=== PATIENT | male | born 1935 | race Caucasian/White ===

== ENCOUNTER 2025-05-07 11:07 | Outpatient (OUT) | payer MEDICARE, OTHER, SELFPAY ==
--- OUTSIDE RECORDS SUMMARY | 2024-03-19 05:30 | XMS_ITS ---
Author Organization The [facility] in [place] Address [address] [place] [address] Care Team Providers Care Survey Cad Technician Name Role Phone Orestes Villalobos D.O Primary Care Provider Alpa vailaSarmad Flores Unavailable [phone] REASON FOR VISIT Ref. Wilfredo - prostate - had seen dr. Domínguez and Dr Jones--medicare Encounters Encounter Location Date Provider Diagnosis Urology [facility] [address] [address] 03/19/2024 Sarmad Keating Plan Of Treatment No Information Progress Notes * Ricci JUAREZ SrDOB:12/1935 (89 yo M)Acc No.[id number]:03/19/2024 UNLOCKED PROGRESS NOTE Progress Note Patient: Ricci NESS Sr :?Sarmad Keating, MDDOB:1935???Age:88 Y ???Sex:MaleDate:03/19/2024hone:[phone]:[address] [place], [place]Pcp:Orestes Villalobos D.O Subjective: * Chief Complaints: * 1 . Ref. Wilfredo Flores prostate - had seen dr. Domínguez and Dr Jones--medicare. * Medical History: Objective: * Vitals: Assessment: Plan: * Treatment: * * Electronic signature of Sarmad Keating MD, [id number] on 05/07/2025 at 11:16 AM ESTSign off status: PendingVisit Status:?R/S (Rescheduled) * Provider: Javier Keating MD Date: 0 03/19/2024 Generated for Printing/Faxing/eTransmitting on:?05/07/2025 11:16 AM EST
--- OUTSIDE RECORDS SUMMARY | 2024-05-09 10:00 | XMS_ITS ---
Author Organization The [facility] in [place] Address [address] [place] [address] Care Team Providers Care Band Cutter Name Role Phone Orestes Villalobos D.O Primary Care Provider Alpa jamalilaSarmad Flores [phone] REASON FOR VISIT prostate mri @ [facility] Encounters Encounter Location Date Provider Diagnosis Urology [address] [address] 05/09/2024 Sarmad Keating Plan Of Treatment No Information Progress Notes * Ricci JUAREZ SrDOB:12/1935 (89 yo M)Acc No.[id number]:05/09/2024 UNLOCKED PROGRESS NOTE Patient:?Ricci JUAREZ Sr :?Sarmad Keating MDDOB:1935???Age:88 Y ???Sex:MaleDate:4Phone:[phone]:[address] [place], [place]Pcp:Orestes Villalobos D.O Subjective: * Chief Complaints: * 1 . Prostate mri @ [facility]. * Medical History: Objective: * Vitals: Assessment: Plan: * Treatment: * * Electronic signature of Sarmad Keating MD, [id number] on 05/07/2025 at 11:16 AM ESTSign off status: PendingVisit Status:?R/S (Rescheduled) * Provider: Javier Keating MD Date: 1 07/09/2023 Generated for Printing/Faxing/eTransmitting on:?05/07/2025 11:16 AM EST
--- OUTSIDE RECORDS SUMMARY | 2024-11-19 04:50 | XMS_ITS ---
Author Organization [facility] in [place] Address [address] [place] [address] Care Team Providers Care Loss Prevention Coordinator Name Role Phone Orestes Villalobos D.O Primary Care Provider Alpa jamalilaSarmad Flores [phone] REASON FOR VISIT 6 month f/u Encounters Encounter Location Date Provider Diagnosis Urology [address] [address] 11/19/2024 Sarmad Keating Plan Of Treatment No Information Progress Notes * Ricci JUAREZ SrDOB:12/1935 (89 yo M)Acc No.[id number]:11/19/2024 UNLOCKED PROGRESS NOTE Patient:?Ricci JUAREZ Sr :?Saramd Keating MDDOB:1935???Age:89 Y ???Sex:MaleDate:11/19/2024Phone:[phone]:[address] [place], [place]Pcp:Orestes Villalobos D.O Subjective: * Chief Complaints: * 1 . 6 month f/u. * Medical History: Objective: * Vitals: Assessment: Plan: * Treatment: * * Electronic signature of Sarmad Keating MD, [id number] on 05/07/2025 at 11:16 AM ESTSign off status: PendingVisit Status:?R/S (Rescheduled) * Provider: Javier Keating MD Date: 0 11/19/2024 Generated for Printing/Faxing/eTransmitting on:?05/07/2025 11:16 AM EST
--- OUTSIDE RECORDS SUMMARY | 2025-01-30 06:10 | XMS_ITS ---
Author Organization The [facility] in [place] Address [address] [place] [address] Care Team Providers Care Dance Choreographer Name Role Phone Orestes Villalobos D.O Primary Care Provider Alpa jamalilaSarmad Flores [phone] Encounters Encounter Location Date Provider Diagnosis Urology [facility] [address] 01/30/2025 Sarmad Keating Plan Of Treatment No Information Progress Notes * Ricci JUAREZ SrDOB:12/1935 (89 yo M)Acc No.[id number]:01/30/2025 UNLOCKED PROGRESS NOTE Patient:?Ricci JUAREZ Sr :?Sarmad Keating MDDOB:1935???Age:89 Y ???Sex:MaleDate:01/30/2025Phone:[phone]:[address] [place], [place]Pcp:Orestes Villalobos D.O Subjective: * Chief Complaints: * * Medical History: Objective: * Vitals: Assessment: Plan: * Treatment: * * Electronic signature of Sarmad Keating MD, [id number] on 05/07/2025 at 11:16 AM ESTSign off status: PendingVisit Status:?CANC (Cancelled) * Provider: Javier Keating MD Date: 0 01/30/2025 Generated for Printing/Faxing/eTransmitting on:?05/07/2025 11:16 AM EST
--- OUTSIDE RECORDS SUMMARY | 2025-05-06 07:51 | XMS_ITS | Continuity of Care Document ---
Author Organization [facility] Address [address] [place] [address] Phone Care Team Providers Care Shaper Setter Name Role Phone Orestes Villalobos DO Primary Care Provider Mathew Magana DO Attending Provider Mathew Magana DO Other Provider [phone] Nathan Pacheco DO Attending Provider Matt Lange MD Attending Provider [phone] Berna Frazier APRN Attending Provider Care Teams Patient Care Team Team Status: Active Member Role/Relationship Status Dates Orestes Villalobos DO Primary Care Provider Active Visit Care Team Team Status: Active Member Role/Relationship Status Dates Orestes Villalobos DO Primary Care Provider Active Start: February 05, 2025 Nancy Martin ProviderActiveStart: February 05, 2025 Marvin Martin ProviderActiveStart: February 05, 2025 Visit Care Team Team Status: Inactive Member Role/Relationship Status Dates Orestes Villalobos DO Primary Care Provider Active Start: February 12, 2025 End: February 12, 2025Nancy Wu ProviderActiveStart: February 12, 2025 End: February 12, 2025 Visit Care Team Team Status: Inactive Member Role/Relationship Status Dates Orestes Villalobos DO Primary Care Provider Active Start: February 17, 2025 End: February 17, 2025Thomas Olexa , MDAttending ProviderActiveStart: February 17, 2025 End: February 17, 2025 Visit Care Team Team Status: Inactive Member Role/Relationship Status Dates Orestes Villalobos DO Primary Care Provider Active Start: March 04, 2025 End: March 04, 2025Mathew Magana DOAttyoanna ProviderActiveStart: March 04, 2025 End: March 04, 2025 Visit Care Team Team Status: Inactive Member Role/Relationship Status Dates Orestes Villalobos DO Primary Care Provider Active Start: March 25, 2025 End: March 25, 2025Nancy Martin ProviderActiveStart: March 25, 2025 End: March 25, 2025 Patient Care Team Team Status: Active Member Role/Relationship Status Dates Orestes Villalobos DO Primary Care Provider Active Start: May 01, 2025 Gilberto Clemente ProviderActiveStart: May 01, 2025 Patient Care Team Team Status: Inactive Member Role/Relationship Status Dates Orestes Villalobos DO Primary Care Provider Active Start: May 06, 2025 End: May 06, 2025Mathew Magana DOAttyoanna ProviderActiveStart: May 06, 2025 End: May 06, 2025 Chief Complaint and Reason for Visit Chief Complaint Admit Date Right Knee Wound February 05, 2025 10: 38am KAB pt - 1 week post op February 12 11:52am KAB PT 1 WEEK WOUND CHECK February 17, 2 025 10:48am 2 WEEKS March 04, 2025 10:43am 3 weeks March 25, 2025 11:04am Open Wound May 01, 2025 1 0:04am wound check May 06, 2025 1 1:44am Reason for Visit Admit Date Other specified postprocedural states Au shane 2024 10:48am Status post arthroscopy of right knee Au shane 2024 10:48am Hemarthrosis, right knee March 04, 2025 10:43am Status post arthroscopy of right knee Se ptember 2024 10:43am Wound dehiscence, surgical March 10:43am Hemarthrosis, right knee March 25, 2025 11:04am Status post arthroscopy of right knee Se ptember 2024 11:04am Wound dehiscence, surgical March 11:04am Atrial fibrillation May 01, 2025 1 0:04am Infrapatellar bursitis of right knee Oct vikki 2024 10:04am Psoriasis May 01, 2025 1 0:04am Status post arthroscopy of right knee Oc tober 2024 10:04am Type 2 diabetes mellitus wit h diabetic neuropathy, unspecified May 01, 2025 10:04am Wound dehiscence, surgical May 01, 2025 10:04am Wound infection May 01, 2025 1 0:04am Hemarthrosis, right knee May 06, 2 025 11:44am Status post arthroscopy of right knee No vember 2024 11:44am Wound dehiscence, surgical May 06, 2025 11:44am Allergies, Adverse Reactions, Alerts Allergen Type Severity Reaction Last Updated Verified Status indomethacin Allergy Unknown vomiting April 01, 2025 8:11a m Yes Active Social History Smoking Status Status Start Date End Date Date of Observa tion Never smoked tobacco (finding) May 01, 2025 10:21am Observation Status Observation Response Date of Response Legal Sex Male (finding) Sex Assigned At BirthMaleMay 1935 Family History Relationship Condition Age at Onset Recorded Date/T kenzie father Unknown motherMalignant neoplasmUnknownDeceasedUnknownmotherMalignant neoplasmUnknown Problems Active Problems Problem Diagnosis/Recorded Date Onset Date Stat BPH (benign prostatic hyperplasia) November 09, 2023 10:57 am Unknown Active Elevated PSA November 09, 2023 10:57am Unknown Active Type 2 diabetes mellitus wit h diabetic neuropathy, unspecified November 09, 2023 10:58am Unknown Active Other specified postprocedural states February 17 10:03am Unknown Active Erectile dysfunction due to arterial insufficiency November 09, 2023 10:57am Unknown Active Wound infection April 24, 2025 9:18am Unknown Active Vitamin B12 deficiency November 09, 2023 10:58am Unknown Active CAD (coronary artery disease) November 09, 2023 10:57am Un known Active Atrial fibrillation January 21, 2025 2:22pm Unknown Active Infrapatellar bursitis of right knee January 17, 2025 1 :24pm Unknown Active Hyperlipidemia November 09, 2023 10:57am Unknown Acti ve Psoriasis November 09, 2023 10:57am Unknown Active Status post arthroscopy of right knee January 17, 2025 5:21am Unknown Active Wound dehiscence, surgical February 04, 2025 11:52am Un known Active GERD (gastroesophageal reflux disease) November 09, 2023 1 0:57am Unknown Active Hemarthrosis, right knee January 16, 2025 7:52am Unknow n Active Allergic rhinitis November 09, 2023 10:57am Unknown A ctive Hypertension November 09, 2023 10:57am Unknown Active Vitamin D deficiency November 09, 2023 10:58am Unknown Active Inactive/Resolved Problems Problem Diagnosis/Recorded Date Onset Date Stat us Encounter for management of vacuum-assisted closure (VAC) of wound January 25, 2025 5:20pm Unknown Resolved Medications Medication Status Dose Units Route Directions Qty Days Refills S tart Date Stop Date End Date Reason(s) Instructions Adherence Lisinopril-Hydrochlorothiazide 20-12.5 mg tablet Disco ntinued 0 .ROUTE.DOMFJKJ449Ntr 2023 7:12amNovember 2023 6:33amTAKE 1 TABLET BY MOUTH EVERY DAYMetformin 1,000 mg tabletDiscontinued0.ROUTE.ITUESRZ7579Ezqp 2023 6:16amSeptember 2023 6:45amTAKE 1 TABLET BY MOUTH TWICE A DAY WITH MEALSMeloxicam 7.5 mg tabletDiscontinued0.ROUTE.TUDHRXL166Vchm 2023 6:17am April 08, 2024 12:58pmTAKE 1 TABLET BY MOUTH EVERY DAYOmeprazole 20 mg capsule,delayed release(DR/EC)Active0.ROUTE.DIKYZRP803Nzot 2023 9:15amTAKE 1 CAPSULE BY MOUTH EVERY DAY 30 MINUTES BEFORE MORNING MEALUnknownAtorvastatin 40 mg tabletDiscontinued0.ROUTE.NPWENHC721Afpusy 2023 5:38amFebruary 2024 10:33amTAKE 1 TABLET BY MOUTH EVERY DAYBisoprolol-Hydrochlorothiazide 2.5- 6.25 mg tabletDiscontinued0.ROUTE.BFPJIOG915Arvyyx 2023 5:39amFebruary 2024 10:33amTAKE 1 TABLET BY MOUTH EVERY DAYMetformin 1,000 mg tablet Discontinued0.ROUTE.ICZAHTS3642Corovrmsu 2023 6:45amMay 2024 5:15am TAKE 1 TABLET BY MOUTH TWICE A DAY WITH MEALSMeloxicam 7.5 mg tabletDiscontinued 0.ROUTE.ELDVYJZ444Sikgazg 2023 12:58pmJune 2024 5:31amTAKE 1 TABLET BY MOUTH EVERY DAYLisinopril-Hydrochlorothiazide 20-12.5 mg tabletDiscontinued0 .ROUTE.UQZZYWQ134Edlfhqtj 2023 6:33amApril 2024 10:18amTAKE 1 TABLET BY MOUTH EVERY DAYAtorvastatin 40 mg tabletDiscontinued0.ROUTE.ILSLSEM982 August 07, 2024 10:32amJuly 2024 5:38amTAKE 1 TABLET BY MOUTH EVERY DAY Bisoprolol-Hydrochlorothiazide 2.5-6.25 mg tabletDiscontinued0.ROUTE.AEWQOWG952 August 07, 2024 10:33amJuly 2024 5:38amTAKE 1 TABLET BY MOUTH EVERY DAY Lisinopril-Hydrochlorothiazide 20-12.5 mg tabletActive0.ROUTE.DQEGJIR375Oufab 2024 10:17amTAKE 1 TABLET BY MOUTH EVERY DAYUnknownMetformin 1,000 mg tabletActive0.ROUTE.GHXYLDB1835Qkp2024 5:14amTAKE 1 TABLET BY MOUTH TWICE A DAY WITH MEALSUnknownMeloxicam 7.5 mg tabletActive0.ROUTE.ORCZLEP195Ikjl2024 5:31amTAKE 1 TABLET BY MOUTH EVERY DAYUnknownHydrocodone-Acetaminophen 5- 325 mg iqkajzRbcpxnyrspip6LSYNKHxqvx 6 hours as needed for oqhe5129Pmek 2024July 2024 1:32pmRight knee pain Pain in right kneeTramadol 50 mg clkqvyHoqgwdzwbywq67FZNMBnddk 8 hours as needed for jdhd2912Dyei 2024 11:00pmSeptember 2024 8:18amStatus post arthroscopy of right knee Other specified postprocedural statesTO BE USED POST OP 01/17/25Aspirin 81 mg tablet,wisizgubXcnjvaielvgk29ZHTZTfikr vzbtp58610Ugub 2024 11:00pm April 01, 2025 8:15amTO BE USED POST OP 01/17/25Atorvastatin 40 mg tablet Active0.ROUTE.GQTGRJM726Jmpf 24th, 2025 5:37amTAKE 1 TABLET BY MOUTH EVERY DAY UnknownBisoprolol-Hydrochlorothiazide 2.5-6.25 mg tabletActive0.ROUTE.ZVGJACO071 January 23, 2025 5:38amTAKE 1 TABLET BY MOUTH EVERY DAYUnknownTramadol 50 mg bvpuswDkwzjmxrwfno75SNKVAifhe 8 hours as needed for skxw3522Fgzfqd 2024 11:00pmSept2024 8:18amPostoperative wound dehiscenceDoxycycline Hyclate 100 mg mfcytxDwqmodhlltek888QSTUDxems filsk2200Egohvt 2024 10:38am April 01, 2025 8:17amDoxycycline Hyclate 100 mg zkhwjwZdepghhwxcom630HIUU Twice gdlit9641Rciy 2024 11:00pmAugust 2024 10:41amClobetasol 0.05 % odrettgfQojfwj3FEZFFFBQXQQJR8 Times a star34524Pvjcsjgcg 2024 11:00pm UnknownAmoxicillin-Pot Clavulanate 875-125 mg tmvzzrWxmjdc2APTFAHzjzr qcozt334 April 20, 2025 11:00pmUnknownGentamicin 0.1 % vqhzqywfWpetop3IQUFCVOAONCKP1 Times a idut766Bkoyfuj 2024 11:00pmUnknownSulfamethoxazole-Trimethoprim (Bactrim Ds) 800-160 mg psuztjDyjbykbnttqf1CZHRXAqykk ozfed843Xsga 2024 11:00pmJuly 2024 8:46amHydrocodone-Acetaminophen 5-325 mg tablet Hgrnztribtxo7AWITGDhcsa 6 hours as needed for vyrs6600Yljn 2024July 2024 10:27amRight knee pain Pain in right kneePrednisone 20 mg rqxsntKklaeemqsdlq48EZLBAuolm7666Ukag 2024 11:00pmJuly 2024 7:53amOmeprazole 20 mg capsule,delayed release(DR/EC)Asgixpomrufb91KPKYWgfftTxn 2023 11:00pmJuly 2023 9:15am Metformin 1,000 mg jhirkuWgipdkvrltat7756HVNRSjajrMyk 2023 11:00pmJune 2023 6:16amMeloxicam 7.5 mg tabletDiscontinued7.5MGPODailyMay 2023 11:00pmJune 2023 6:18amLisinopril-Hydrochlorothiazide 20-12.5 mg tablet Ofilvurgivya4ONAQXPguqnDis 2023 11:00pmMay 2023 7:12amAspirin 81 mg tablet,iurjivyhXdplpqefwpfq8BCAAROwxjiLka 12th, 2024 11:00pmMay 2024 9:42amTamsulosin 0.4 mg oqmxtevGgcqrftdbosd2OHEZHFnpoeSzh 2023 11:00pmMay 2024 9:43amFreeTextSi capsule Orally Once a day; Note: Source Status: Taking; Provider: Wilfredo Carlisle( )Magnesium Oxide 400 mg (241.3 mg magnesium) ojxstiYnszqghulfza1VYXNDYzheyLrz 12th, 2024 11:00pmMay 2024 9:43amFreeTextSi tablet as needed Orally Once a day; Note: Source Status: Start; Refills: 1; Qty: 90 Tablet; Provider: Wilfredo Gresham Bisoprolol-Hydrochlorothiazide 2.5-6.25 mg iejvqzFlneempxwwxn5VYIVHSpbjwEwx 2023 11:00pmAugust 2023 5:39amAtorvastatin 40 mg vckwqjQzuwsbkkblgn53 MGPODailyMay 2023 11:00pmAugust 2023 5:38amSildenafil 50 mg tablet Mzwsgkbihsyj36KWJLWzuylYcb 2023 11:00pmJuly 2024 7:53amDulaglutide (Trulicity) 0.75 mg/0.5 mL pen injectorDiscontinued0.5MLSUBCUTOnce a weekMay 2023 11:00pmMay 2023 8:11amFreeTextSi.5 ml Subcutaneous Once a week; Note: Source Status: Taking; Refills: 1; Qty: 6 ml; Provider: Wilfredo Carlisle AClobetasol 0.05 % iopluIgkgpghhmoiv7TDWLKTQMPQWRGKvpkb zzrnk21864Yat 2023 11:00pmSeptember 2024 8:17amTramadol 50 mg wjsadoQloxwwltawbh54 MGPOEvery 8 hours as needed for gfen9377Fyjm 2024 11:00pmSeptember 2024 8:18amStatus post arthroscopy of right knee Other specified postprocedural statesSulfamethoxazole-Trimethoprim (Bactrim Ds) 800-160 mg zdhmkpUqfebmhdmmmc4XOKWVLvers gdvot34857Lydo 2024 11:00pmAugust 2024 10:00am Immunizations Immunization Event Date Not Given Reason Dose Number [employer] Lot Number Reason(s) Given Vaccine Information Statement (VIS) Detail Administration Location Quadrivalent Influenza (mdv) September 10, 2014 Fluzone TIV High-Dose 65YR+May 06, [id number] influenza, unspecified formulationNovember 2019influenza, unspecified formulationOctober 2020influenza, unspecified formulationOctober 2021influenza, unspecified formulationNovneumococcal Conjugate Vaccine, 13 valentNovember 2019Pneumococcal Polysacc. Vaccine, 23 valentMay 2021 Procedures Procedure Date Performed Status Aerobic Culture April 24, 2025 completed Anaerobic Culture April 24, 2025 completed Gram Stain April 24, 2025 completed Relevant Diagnostic Tests and/or Laboratory Data Microbiology Results Procedure Source Result Collection Date/Time Result Date/Time Result Comment Performing Site Aerobic Culture Knee,Right, Tissue Proteus mirabilis O ctober 2024 10:05am April 27, 2025 12:37pm [facility] [id number] [address] [place] [id number],Right, TissueEnterococcus faecalisOctober 2024 10:05amOctober 2024 12:37pm[facility] [id number] [address] [facility] [address]Fsquaaskd CultureKnee,Right, TissueBacteroides fragilisOctober 2024 10:05amOctober 2024 12:39pm[facility] [id number] [address] [facility] [id number],Right, TissuePrevotella disiensOctober 2024 10:05am April 27, 2025 12:39pm[facility] [id number] [address] [facility] [id number] StainKnee,Right, TissueOctober 2024 10:05amOctober 2024 1:47pm[facility] [id number] [address] [facility] [address] Vital Signs Vital Reading Result Reference Range Collection Date/Time Height 67 [in_i] February 05, 2025 9:76uiJefmgj84.11 kgAugust 2024 9:53amBody Tvvngixdlky96.6 [degF]97.6-99.0August 2024 11:40amHeart Rate90 /odn61-580Ofskdz 2024 1:02pmRespiratory rate16 /rae57-94Qsvcjx 6th, 2025 1:02pmOxygen saturation by Pulse iqkbvjnx72 %95-100Augus2024 1:02pmBP Tcsboqle193 mm[Hg]100-140 February 05, 2025 1:02pmBP Ufvvhlxku34 mm[Hg]60-100August 2024 1:02pmInhaled oxygen flow rate8 L/minAugust 2024 11:82upIofsep81 [in_i]May 01, 2025 9:72aeJchtlk09.74 kgOctober 2024 9:21amBody Ksevsehmswr84.2 [degF] 97.6-99.0October 2024 9:04amHeart Rate76 /sjj90-571Pbqetff 2024 9:04amRespiratory rate18 /afa58-52Gqpdnoe 2024 9:04amBP Ynbemwca614 mm[Hg] 100-140[facility] 20[facility] 9:04amBP Otbwkvgff34 mm[Hg]60-100[facility] 2024 9:04amBMI (Body Mass Index)25.4 kg/v9Csefubh 2024 9:21am Advance Directives Advance Directive Response Recorded Date/ Time Advance Directives No January 13 12:08pm Insurance Providers Guarantor Patricia William Address [address] [address]Xucglfr Info.Home Phone: Coverage Status Update:2025 Payer Group Member ID Coverage Type Subscriber Relationship to Subscriber Effective Date Expiration Date Medicare [id number] Sisson , D Id: [id number] [facility] [address] Home Phone: Email: [email or web address] Id: [id number] Sisson , D Id: [id number] [facility] [address] Home Phone: Email: [email or web address] Encounters Encounter Location(s) Arrival/Admit Date Discharge/Departure Date Discharge/Departure Disposition Provider(s) Non-patient / Non-visit -[facility] February 05, 2025 10:38am Stephanie Martin [facility] 11:52amAugu2024 12:13pmDischarged to home care or self care (routine discharge)Stephanie Wu Physician/Provider [facility] 2024 10:48amAugu2024 11:31amDischarged to home care or self care (routine discharge)Carmelo Ca Physician/Provider Office Visit-[facility] 2024 10:43amSeptember 2024 12:06pm Discharged to home care or self care (routine discharge)Mathew Magana DO Departed Physician/Provider [facility] 11:04amSeptember 2024 11:33amDischarged to home care or self care (routine discharge)SYEDA Martinegistered Recurring-Wound Care [facility] 2024 10:04amDhruv Irene APRNDeparted Physician/Provider [facility] 11:44amNovember 2024 12:49pmDischarged to home care or self care (routine discharge)Mathew Magana DO Recent Diagnosis Onset Date Admit Date Other specified postprocedural states Unknown February 17, 2025 10:48am Status post arthroscopy of right knee Unknown February 17, 2025 10:48am [facility] 10[facility] Status post arthroscopy of right knee Unknown March 04, 2025 10:43am Wound dehiscence, surgical Unknown [facility] 2024 10:43am Hemarthrosis, right knee [facility] 11:04am Status post arthroscopy of right knee Unknown March 25, 2025 11:04am Wound dehiscence, surgical Unknown [facility] 2024 11:04am Atrial fibrillation Unknown April 10:04am Infrapatellar bursitis of right knee Unknown May 01, 2025 10:04am Psoriasis Unknown May 01 10:04am Status post arthroscopy of right knee Unknown May 01, 2025 10:04am Type 2 diabetes mellitus wit h diabetic neuropathy, unspecified Unknown May 01, 2025 10:04am Wound dehiscence, surgical Unknown [facility] 2024 10:04am Wound infection Unknown May 01 10:04am Hemarthrosis, right knee Unknown 2024 11:44am Status post arthroscopy of right knee Unknown May 06, 2025 11:44am Wound dehiscence, surgical Unknown 2024 11:44am Assessments Diagnosis Onset Date Resolution Status Admit Date Other specified postprocedural states acuteAugust 2024 10:48amStatus post arthroscopy of right kneeacuteAugust 2024 10:48amHemarthrosis, right kneeacuteSeptember 2024 10:43amStatus post arthroscopy of right kneeacuteSeptember 2024 10:43amWound dehiscence, surgicalacuteSeptember 2024 10:43amHemarthrosis, right kneeacuteSeptember 2024 11:04amStatus post arthroscopy of right kneeacuteSeptember 2024 11:04amWound dehiscence, surgicalacuteSeptember 2024 11:04amAtrial fibrillationacuteOctober 2024 10:04amInfrapatellar bursitis of right knee acuteOctober 2024 10:04amPsoriasisacuteOctober 2024 10:04amStatus post arthroscopy of right kneeacuteOctober 2024 10:04amType 2 diabetes mellitus with diabetic neuropathy, unspecifiedacuteOctober 2024 10:04am Wound dehiscence, surgicalacuteOctober 2024 10:04amWound infectionacute October 2024 10:04amHemarthrosis, right kneeacuteNovember 2024 11:44amStatus post arthroscopy of right kneeacuteNovember 2024 11:44amWound dehiscence, surgicalacuteNovember 2024 11:44am Plan of Treatment Author Sheyla [facility]red[facility] 2024 10:33amWound vac removed today. Patient is progressing well from surgery. Instructed on gentle range of motion exercises. Sutures removed today, patient tolerated well. Instructed on wet to dry dressings, as well as leaving open to air while at rest. Wet to dry dressing applied without difficulty. May progress out of immobilizer as tolerated. Advised patient contact us with any questions/concerns. Author Tricia Campos [facility]2024 11:14amDiscussed with patient his wound is not healing as expected, no evidence of infection. Discussed revision surgery and referral to wound care. Discussed due to his upcoming trip we will continue with at home wound care and will reassess at follow up appointment. Discussed with patient to call with any questions or concerns, we can send an antibiotic in if there are any changes. Patient is to follow up in 2.5 weeks Note scribed by KIM Dominguez, reviewed and amended by myself Mathew Magana D.O. Author Mathew Magana [facility] 2024 12:28pmWe discussed exam findings, symptoms, and imaging and likely etiologies of the patient's pain. We discussed conservative management vs surgical intervention. The patient wishes to proceed with surgery in the form of Primary wound closure of right knee. We discussed the risks, benefits, and alternatives to surgery in general, including the potential outcomes with foregoing treatment altogether. The risks include, but are not limited to, the risk of anesthesia up to and including , infection, bleeding, tendon damage, nerve damage, vascular damage, stiffness, weakness, loss of range of motion, arthrofibrosis, failure to alleviate symptoms, worsening of symptoms, continued pain, continued mechanical symptoms, arthritic pain, post traumatic arthritis, wound healing problems, formation of cutaneous scars secondary to surgical incisions, deep venous thrombosis, pulmonary embolism, reflex sympathetic dystrophy, unforeseen complications and the need for further surgery. Procedure: Primary wound closure of right knee Antibiotics: Ancef DVT ppx: Ambulation Same Day Surgery: Yes Bed: Regular OR bed, MAC anesthetic Instruments needed: Small wound VAC, T scope knee brace after surgery (already provided to patient) Note scribed by KIM Tolliver, reviewed and amended by myself Mathew Magana D.O. Author Mathew Magana [facility] 2024 10:28amHe is slowly progressing. The wound is slowly healing. At this time, we discussed continuing to treat this conservatively with observation versus surgical intervention. Patient would like to avoid surgery if possible.. We also discussed starting wound care, referral was submitted. Advised he should continue to monitor for infection. He can continue to progress activity as tolerated. He can follow up 6-8 weeks or as needed if he is doing well. Future Tests Future scheduled test information is unavailable Pending Tests Pending diagnostic test information is unavailable Future Visits Future appointment information is unavailable Future Procedures Procedure Name Ordered Date Scheduled Date Post Anesthesia Tracer order February 05, 2025 9: 55am February 05, 2025 10:00am Discharge Order February 04, 2025 4:52pm February 052024 12:37pm Future Medications Future medication information is unavailable Patient Instructions Instruction Admit Date Know your Meds February 05, 2025 10: 38am
--- OUTSIDE RECORDS SUMMARY | 2025-05-06 13:00 | XMS_ITS | Encounter Summary ---
Author Organization [facility] Address [address] [place] [address] Care Team Providers Care Operator Receptionist Name Role Phone Unavailable Primary Care Provider Unavailabl e Reason for Visit * ReasonCommentsSkin CheckFollow-up Encounter Details DateTypeDepartmentCare Team (Latest Contact Info)Devffxfothr53/04/2025 1:00 PM ESTOffice Visit [facility] [address] [facility] [address] [place] [phone] Dorothy Stubbs MD [address] [facility] [address] [place] [address] Other atopic dermatitis (Primary Dx); Neoplasm of unspecified behavior of bone, soft tissue, and skin; Actinic keratosis; Lentigines; History of basal cell carcinoma Social History Tobacco UseTypesPacks/DayYears UsedDateSmoking Tobacco: NeverSmokeless Tobacco: NeverAlcohol UseStandard Drinks/WeekCommentsYes0 (1 standard drink = 0.6 oz pure alcohol)Sex and Gender InformationValueDate RecordedSex Assigned at BirthNot on fileLegal OkrAqzd1009/14/2022 6:50 PM EDTGender IdentityNot on fileSexual OrientationNot [...] limited to risks of scarring, darker or type disk quality control supervisor pigmentary changes, recurrence, incomplete removal and infection. [...] 5. HISTORY OF BASAL CELL CARCINOMA Left [place] No evidence of recurrence at BCC scar. [...] Plan of Treatment DateTypeDepartmentCare Team (Latest Contact Info)Vgzzdsdxcad61/04/2026 1:00 PM ESTOffice Visit [facility] [address] [place] [address] Dorothy Stubbs MD [address] [place] [address] NameTypePriorityAssociated DiagnosesOrder ScheduleDermatopathology examPathology and CytologyTimed Neoplasm of unspecified behavior of bone, soft tissue, and skin Release Upon Ordering for 1 Occurrences starting 05/06/2025documented as of this encounter Procedures Procedure NamePriorityDate/TimeAssociated DiagnosisCommentsSKIN / NAIL BIOPSY Vbztssw0505/06/2025 1:06 PM EST Neoplasm of unspecified behavior of bone, soft tissue, and skin SKIN / NAIL NWARYBIlojrtl70/04/2025 1:04 PM EST Neoplasm of unspecified behavior of bone, soft tissue, and skin CRYOTHERAPY SKIN QYDGRQEpvfvqw06/04/2025 1:04 PM EST Actinic keratosis SKIN / NAIL CCHEJIKiyqpxt41/04/2025 1:03 PM EST Neoplasm of unspecified behavior [...]
--- OUTSIDE RECORDS SUMMARY | 2025-05-07 11:16 | XMS_ITS | Encounter Summary ---
Author Organization [facility] Address [address] [place] [address] Care Team Providers Care Docking Pilot Name Role Phone Unavailable Primary Care Provider Unavailabl e Encounter Details DateTypeDepartmentCare Team (Latest Contact Info)Ckcocafnijj31/04/2025Travel Social History Tobacco UseTypesPacks/DayYears UsedDateSmoking Tobacco: NeverSmokeless Tobacco: NeverAlcohol UseStandard Drinks/WeekCommentsYes0 (1 standard drink = 0.6 oz pure alcohol)Sex and Gender InformationValueDate RecordedSex Assigned at BirthNot on fileLegal ZkiKdlw2909/14/2022 6:50 PM EDTGender IdentityNot on fileSexual OrientationNot on filedocumented as of this encounter Plan of Treatment DateTypeDepartmentCare Team (Latest Contact Info)Rqcidolivcr57/04/2026 1:00 PM ESTOffice Visit [facility] [address] [facility] [address] [place] [phone] Dorothy Stubbs MD [address] [facility] [address] [place] [address] documented as of this encounter Visit Diagnoses Not on filedocumented in this encounter
--- OUTSIDE RECORDS SUMMARY | 2025-05-07 11:16 | XMS_ITS | Patient Health Record ---
Author Organization [facility] Address [address] [place] [address] Care Team Providers Care Search Developer Name Role Phone Magdiel Fernandon Unavailable [phone] Allergies No Known Allergies Reason For Referral No Information Medications Medication SIG (Take, Route, Frequency, Duration) Notes Start Date End Date Status Meloxicam 7.5 MG Oral; Duration: 90 Days ActiveKetoconazole 2 %External; Duration: 30 DaysActiveLisinopril- hydroCHLOROthiazide 20-12.5 MGOral; Duration: 90 DaysActivemetFORMIN HCl 1000 MG Oral; Duration: 90 DaysActiveAtorvastatin Calcium 40 MGOral; Duration: 90 Days ActiveBisoprolol-hydroCHLOROthiazide 2.5-6.25 MGOral; Duration: 90 DaysActive Levocetirizine Dihydrochloride 5 MGOral; Duration: 90 DaysActiveBetamethasone Dipropionate 0.05 %External; Duration: 30 DaysActive Vital Signs Heart Rate 70 BPM 07/22/2024 Ddfvqzulyqc13.8 degrees Uuyldxxmwy83/20/2025Respiratory Rate18 BPM07/22/2024 Blood pressure ldxsdvzga75 mm/Hg07/22/20248647Mtqhaobo10 %07/22/20243766Gggpfy19 in 07/22/2024lood pressure yqurosuk662 mm/Hg07/22/20242020Aabyjm304 lbs07/22/2024MI 26.3 kg/m207/22/2024 Procedures Procedure Date Ordered Date Performed Result Body Sit e CERUMEN DISIMPACTION- ONE EA R (EAR IRRIGATION) 07/22/2024 07/24/2024 N/A Encounters Encounter Location Date Provider [facility] [address] [place] [address] 07/22/2024 Jason Fernando Bilateral impacted cerumen H61.23 Assessments Encounter Date Diagnosis (ICD Code) Assessment Notes Treatment Notes Treatment Clinical Notes Section Notes 07/22/2024 Bilateral impacted cerumen (ICD- 10 - H61.23) Plan Of Treatment No Information Insurance Providers Payer Name Payer Address Payer Phone Subscriber Number Group Number Insured Name Patient Relationship to Insured Coverage Start Date Coverage End Date MEDIC[place] [address] [address] [place] [address] [id number] Mic Juarez - patient is the [facility] [address] [address] [place] [id number], RichardSelf - patient is the insured Medical (General) History Medical History History ICD Code HTN CHOLESTEROLDIABETEShearing loss - hearing aids
--- OUTSIDE RECORDS SUMMARY | 2025-05-07 11:16 | XMS_ITS | Clinical Summary ---
Author Organization [facility] Address [address] [place] [address] Care Team Providers Care Local Company Truck Driver Name Role Phone Unavailable Primary Care Provider Unavailabl e Allergies No known active allergies Medications MedicationSigDispense QuantityRefillsLast FilledStart DateEnd DateStatus atorvastatin (Lipitor) 40 MG tablet Take 40 mg by mouth in the morning.02/14/2023ctive bisoprolol-hydroCHLOROthiazide (Ziac) 2.5-6.25 MG tablet Take 1 tablet by mouth in the morning.Active lisinopril-hydroCHLOROthiazide 20-12.5 MG tablet Take 1 tablet by mouth in the morning.Active meloxicam (Mobic) 7.5 MG tablet TAKE 1 TABLET BY MOUTH EVERY DAY FOR 90 DAYS03/16/2023ctive metFORMIN (Glucophage) 1000 MG tablet Take 1,000 mg by mouth in the morning and 1,000 mg in the evening. Take with meals.03/23/2023ctive omeprazole (PriLOSEC) [address] capsule TAKE 1 CAPSULE BY MOUTH EVERY DAY 30 MINUTES BEFORE MORNING MEALActive pioglitazone-metFORMIN (Actoplus Met) 15-500 MG tablet 1 (one) time each day at the same time.Active simvastatin (Zocor) 80 MG tablet 1 (one) time each day at the same time.Active betamethasone dipropionate 0.05 % cream Indications:Other atopic dermatitisApply to affected areas on arms, back, legs, up to twice a day when flared, do not use one the face, groin, or underarms, 30 day supply 45 g 11001/08/2024ctive levocetirizine (Xyzal) 5 MG tablet Indications:DermatographismTake 1 tablet (5 mg) by mouth in the evening 30 tablet 111ctive Active Problems No known active problems Encounters DateTypeDepartmentCare PfczGczjfsnpiph23/04/2025 1:00 PM ESTOffice Visit [facility] [address] [facility] [address] [place] [address] Dorothy Stubbs MD Other atopic dermatitis (Primary Dx); Neoplasm of unspecified behavior of bone, soft tissue, and skin; Actinic keratosis; Lentigines; History of basal cell ouswbfwcj12/04/2025amboo flowsheet [facility] [address] [facility] [address] [place] [address] Dorothy Stubbs MD 05/06/2025Travelfrom Last 3 Months Family History Medical HistoryRelationNameCommentsNo Known ProblemsFatherCancerMotherBreast cancerNeg HxColon cancerNeg HxMelanomaNeg HxOvarian cancerNeg HxRelationName StatusCommentsFatherDeceasedMotherDeceased Social History Tobacco UseTypesPacks/DayYears UsedDateSmoking Tobacco: NeverSmokeless Tobacco: Never Tobacco Cessation:Counseling Given: Not Answered Alcohol UseStandard Drinks/WeekCommentsYes0 (1 standard drink = 0.6 oz pure alcohol)Sex and Gender InformationValueDate RecordedSex Assigned at BirthNot on fileLegal IzdEkao6109/14/2022 6:50 PM EDTGender IdentityNot on fileSexual OrientationNot on file Last Filed Vital Signs Vital SignReadingTime TakenCommentsBlood Jskwtmav078/6807 12:00 PM EDT Pulse--Temperature--Respiratory Rate--Oxygen Saturation--Inhaled Oxygen Concentration--Xouowv59.2 kg (190 lb)07/06/2017 12:00 PM LDIUairxc009.7 cm (5' 8 )04/04/2022 12:00 PM EDTBody Mass Index28.8907/06/2017 12:00 PM EST Plan of Treatment DateTypeDepartmentCare Team (Latest Contact Info)Mkbbcwbkict93/04/2026 1:00 PM ESTOffice Visit [facility] [address] [facility] [address] [place] [address] Dorothy Stubbs MD [address] [place] [address] Health MaintenanceDue DateLast DoneCommentsCOVID-19 Vaccine (2024- season) 51, 06/08/2021, 08/15/2020, Additional history existsInfluenza Vaccine (#1)5107/06/2023, 05/05/2023, 05/02/2022, Additional history existsPneumococcal Vaccine: 65+ XcrwaPhednallm08/09/2022, 05/11/2020 Procedures Procedure NamePriorityDate/TimeAssociated DiagnosisCommentsSKIN / NAIL BIOPSY Xiuuwyt4905/06/2025 1:06 PM EST Neoplasm of unspecified behavior of bone, soft tissue, and skin SKIN / NAIL IBOGLZAunqjdq46/04/2025 1:04 PM EST Neoplasm of unspecified behavior of bone, soft tissue, and skin CRYOTHERAPY SKIN XFCKJTHzkqgai37/04/2025 1:04 PM EST Actinic keratosis SKIN / NAIL OJOCOTVktyizz78/04/2025 1:03 PM EST Neoplasm of unspecified behavior of bone, soft tissue, and skin from Last 3 Months Results * Lesion biopsy (05/06/2025 1:06 PM [...] StatusEmily A Petitti MDDERM PROCEDURE ORDERABLESFinal Result from Last 3 Months Insurance * Guarantor: Ricci Juarezcofeliciano TypeRelation to PatientDate of BirthPhone Billing AddressPersonal/LkifekApfm18[birth year][id number] [place] [phone]
--- OUTSIDE RECORDS SUMMARY | 2025-05-07 11:16 | XMS_ITS | Encounter Summary ---
Author Organization [facility] Address [address] [place] [address] Care Team Providers Care Manager Of Internal Name Role Phone Unavailable Primary Care Provider Unavailabl e Encounter Details DateTypeDepartmentCare Team (Latest Contact Info)Hjbalpcqxof71/04/2025amboo flowsheet [facility] [place] [facility] [address] [place] [address] Dorothy Stubbs MD [address] [place] [address] Social History Tobacco UseTypesPacks/DayYears UsedDateSmoking Tobacco: NeverSmokeless Tobacco: NeverAlcohol UseStandard Drinks/WeekCommentsYes0 (1 standard drink = 0.6 oz pure alcohol)Sex and Gender InformationValueDate RecordedSex Assigned at BirthNot on fileLegal TliVimv3809/14/2022 6:50 PM EDTGender IdentityNot on fileSexual OrientationNot on filedocumented as of this encounter Plan of Treatment DateTypeDepartmentCare Team (Latest Contact Info)Rxwgtbdgjrp91/04/2026 1:00 PM ESTOffice Visit [facility] [place] [facility] [address] [place] [address] Dorothy Stubbs MD [address] [place] [address] documented as of this encounter Visit Diagnoses Not on filedocumented in this encounter
--- OUTSIDE RECORDS SUMMARY | 2025-05-07 11:17 | XMS_ITS | Patient Health Record ---
Author Organization [facility] [place] Address [address] [place] [address] Care Team Providers Care Brattice Builder Name Role Phone Orestes Villalobos D.O Primary Care Provider Alpa Sarmad Thomas Unavailable [phone] Allergies No Known Allergies Reason For Referral No Information Medications Medication SIG (Take, Route, Frequency, Duration) Notes Start Date End Date Status Meloxicam ActivemetFORMIN HCl 1000 MG1 tablet with a meal Orally Once a dayActive JsxpgjuqgqZdogunCsnujrbnefazwLxx-IwmtvuMgngcrorrk-dtbxpCTYJRXyjwbaewkHmlqey Levocetirizine DihydrochlorideNot-TakingLisinoprilActiveCiprofloxacin HCl 500 MG 1 tablet Orally every 12 hrs; Duration: 3 day(s)5ActiveAtorvastatin CalciumActive Social History Tobacco Use: Social History Observation Description Date Details (start date - stop date) Never Smoker NA - NA Tobacco Control (Standard) Question Answer Notes Tobacco use: Nonsmoker AUDIT-C (Standard) Question Answer Notes Did you have a drink containing alcohol in the p ast year? 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) ActiveconfirmedProblemLower urinary tract symptoms due to benign prostatic hypertrophy (90260516297488)Benign prostatic hyperplasia with lower urinary tract symptoms, symptom details unspecified (N40.1)Activeconfirmed Vital Signs Height 68 in 11/26/2024 Wijkxx366 lbs11/26/2024BMI27.37 kg/m211/26/2024 Procedures Procedure Date Ordered Date Performed Result Body Sit e Prostate Ultrasound with Biopsy 11/26/2024 11/27/2024 N/A Encounters Encounter Location Date Provider Diagnosis Urology [address] [address] 05/21/2024 [facility] Benign prostatic hyperplasia with lower urinary tract symptoms, symptom details unspecified N40.1 ; Calculus of kidney and ureter N20.2 and Elevated prostate specific antigen [PSA] R97.[address] [address] 11/26/[address] [facility] Benign prostatic hyperplasia with lower urinary tract symptoms, symptom details unspecified N40.1 ; Calculus of kidney and ureter N20.2 and Elevated prostate specific antigen [PSA] R97.[address] [address] 01/09/2025 [facility] Urology [facility] [address] [place] [address]/19/2024[facility] Assessments Encounter Date Diagnosis (ICD Code) Assessment Notes Treatment Notes Treatment Clinical Notes Section Notes 05/21/2024 Benign prostatic hyp erplasia with lower urinary tract symptoms, symptom details unspecified (ICD-10 - N40.1) 11/26/2024enign prostatic hyperplasia with lower urinary tract symptoms, symptom details unspecified (ICD-10- N40.1)5Calculus of kidney and ureter (ICD-10 - N20.2)05/21/2024alculus of kidney and ureter (ICD-10 - N20.2) 05/21/2024Elevated prostate specific antigen [PSA] (ICD-10 - R97.20)11/26/2024 Elevated prostate specific antigen [PSA] (ICD-10 - R97.20)05/21/2024Other MRI fusion biopsy with [place] in [place]., Discussed risks PIRADS-4 areas. 11/26/2024Other Uronav. Cipro called in. Plan Of Treatment Pending Test Test Name Order Date MRI PROSTATE W/ + W/O CONTRAST 4 Insurance Providers Payer Name Payer Address Payer Phone Subscriber Number Group Number Insured Name Patient Relationship to Insured Coverage Start Date Coverage End Date [place] [address] [place] [address] [id number] Mic Juarez - patient is the [id number] 2000[facility] [address] [address] [place], [place] [id number], RichardSelf - patient is the insured Medical (General) History Medical History History ICD Code hypertension hyperlipidemiadiabeteskidney stonesBenign prostatic hyperplasia with lower urinary tract symptoms, symptom details dxumgvfudbvY06.1Calculus of kidney and pfsefbQ74.2Elevated prostate specific antigen [PSA]R97.20Surgical History Surgery Date(Month/Year) prostate surgery cataract removal
--- OUTSIDE RECORDS SUMMARY | 2025-05-07 11:17 | XMS_ITS | Clinical Summary ---
Author Organization [facility] Address [address] [place] [address] Phone Care Team Providers Care Engineering Supplies Sales Name Role Phone Unavailable Primary Care Provider Unavailabl e Social History Tobacco UseTypesPacks/DayYears UsedDateSmoking Tobacco: Never AssessedSex and Gender InformationValueDate RecordedSex Assigned at BirthNot on fileLegal Sex Male05/27/2022 5:52 PM ESTGender IdentityNot on fileSexual OrientationNot on file Plan of Treatment Health MaintenanceDue DateLast DoneCommentsLipid Panel1935Yearly Adult Jwhwdyum37/06/1936DTaP/Tdap/Td Vaccines (1 - Tdap)11/05/1957Pneumococcal Vaccine (1 of 1 - PCV)11/05/1985Zoster Vaccines (1 of 2)11/05/1985RSV High Risk: (Elderly (60+) or Population) (1 - 1-dose 75+ series)11/05/2010 Influenza Vaccine (#1)2025OVID-19 Vaccine (1 - 2024-26 season)2025 HIB VaccinesAged OutNo longer eligible based on patient's age to complete this topicHPV VaccinesAged OutNo longer eligible based on patient's age to complete this topicHepatitis A VaccinesAged OutNo longer eligible based on patient's age to complete this topicHepatitis B VaccinesAged OutNo longer eligible based on patient's age to complete this topicIPV VaccinesAged OutNo longer eligible based on patient's age to complete this topicMeningococcal VaccineAged OutNo longer eligible based on patient's age to complete this topicRotavirus VaccinesAged Out No longer eligible based on patient's age to complete this topic
[2025-05-07 12:30] LABS: Hematocrit 37.5 % (42.0-54.0); Hemoglobin 12.5 g/dL (14.0-18.0); Immature Granulocytes Abs Auto 0.03 10^3/uL (0.00-0.03); Immature Granulocytes Pct Auto 0.4 % (0.0-0.5); Lymphocytes Absolute Auto 2.1 10^3/uL (1.2-3.8); Mean Corpuscular HGB Conc 33.3 g/dL (29.9-35.2); Mean Corpuscular Hemoglobin 28.4 pg (25.9-34.0); Mean Corpuscular Volume 85.2 fL (80.0-94.0); Platelet Count 190 10^3/uL (150-450); Red Blood Count 4.40 10^6/uL (4.70-6.10); White Blood Count 7.4 10^3/uL (4.0-11.0)
[2025-05-07 12:58] LABS: Alanine Aminotransferase 25 U/L (16-63); Albumin Globulin Ratio 1.1; Albumin Level 3.6 g/dL (3.4-5.0); Alkaline Phosphatase 98 U/L (46-116); Anion Gap 13.3; Aspartate Amino Transferase 18 U/L (15-37); Blood Urea Nitrogen 10.0 mg/dL (7.0-18.0); Calcium 8.3 mg/dL (8.5-10.1); Carbon Dioxide 32.0 mmol/L (21.0-32.0); Chloride 99 mmol/L (98-107); Estimated GFR (African America >60 (>=60 mL/min/1.73m^2); Estimated GFR (Non-African Ame >60 (>=60 mL/min/1.73m^2); Globulin 3.2 g/dL; Glucose 191 mg/dL (74-106); Potassium 3.3 mmol/L (3.5-5.1); Sodium 141 mmol/L (136-145); Total Protein 6.8 g/dL (6.4-8.2)
== END 2025-05-07 11:08 | disposition home or self-care (01) ==
LOC: PST 11:14
PROVIDERS: PCP Student in an Organized Health Care Education/Training Program; Visit Provider Physician Assistant
DX: Z01.812 Encounter for preprocedural laboratory examination (principal); M25.561 Pain in right knee
CPT/HCPCS: 36415; 80053; 85025

== ENCOUNTER 2025-05-08 12:46 | Day surgery (SDC) | payer MEDICARE, OTHER, SELFPAY ==
--- OUTSIDE RECORDS SUMMARY | 2024-03-19 05:30 | XMS_ITS ---
Author Organization The [facility] in [place] Address [address] [place] [address] Care Team Providers Care Clerical Support Specialist Name Role Phone Orestes Villalobos D.O Primary Care Provider Alpa vailaSarmad Flores Unavailable [phone] REASON FOR VISIT Ref. Wilfredo - prostate - had seen dr. Domínguez and Dr Jones--medicare Encounters Encounter Location Date Provider Diagnosis Urology [facility] [address] [address] 03/19/2024 Sarmad Keating Plan Of Treatment No Information Progress Notes * Ricci JUAREZ SrDOB:12/1935 (89 yo M)Acc No.[id number]:03/19/2024 UNLOCKED PROGRESS NOTE Progress Note Patient: Ricci NESS Sr :?Sarmad Keating, MDDOB:1935???Age:88 Y ???Sex:MaleDate:4Phone:[phone]:[address] [place], [place]Pcp:Orestes Villalobos D.O Subjective: * Chief Complaints: * 1 . Ref. Wilfredo Flores prostate - had seen dr. Domínguez and Dr Jones--medicare. * Medical History: Objective: * Vitals: Assessment: Plan: * Treatment: * * Electronic signature of Sarmad Keating MD, [id number] on 05/08/2025 at 12:51 PM ESTSign off status: PendingVisit Status:?R/S (Rescheduled) * Provider: Javier Keating MD Date: 0 03/19/2024 Generated for Printing/Faxing/eTransmitting on:?05/08/2025 12:51 PM EST
--- OUTSIDE RECORDS SUMMARY | 2024-05-09 10:00 | XMS_ITS ---
Author Organization The [facility] in [place] Address [address] [place] [address] Care Team Providers Care Leasing Machine Tender Name Role Phone Orestes Villalobos D.O Primary Care Provider Alpa jamalilaSarmad Flores [phone] REASON FOR VISIT prostate mri @ [facility] Encounters Encounter Location Date Provider Diagnosis Urology [address] [address] 05/09/2024 Sarmad Keating Plan Of Treatment No Information Progress Notes * Ricci JUAREZ SrDOB:12/1935 (89 yo M)Acc No.[id number]:05/09/2024 UNLOCKED PROGRESS NOTE Patient:?Ricci JUAREZ Sr :?Sarmad Keating MDDOB:1935???Age:88 Y ???Sex:MaleDate:4Phone:[phone]:[address] [place], [place]Pcp:Orestes Villalobos D.O Subjective: * Chief Complaints: * 1 . Prostate mri @ [facility]. * Medical History: Objective: * Vitals: Assessment: Plan: * Treatment: * * Electronic signature of Sarmad Keating MD, [id number] on 05/08/2025 at 12:51 PM ESTSign off status: PendingVisit Status:?R/S (Rescheduled) * Provider: Javier Keating MD Date: 07/09/2023 Generated for Printing/Faxing/eTransmitting on:?05/08/2025 12:51 PM EST
--- OUTSIDE RECORDS SUMMARY | 2024-11-19 04:50 | XMS_ITS ---
Author Organization The [facility] in [place] Address [address] [place] [address] Care Team Providers Care Track Laborer Name Role Phone Orestes Villalobos D.O Primary Care Provider Alpa jamalilaSarmad Flores [phone] REASON FOR VISIT 6 month f/u Encounters Encounter Location Date Provider Diagnosis Urology [address] [address] 11/19/2024 Sarmad Keating Plan Of Treatment No Information Progress Notes * Ricci JUAREZ SrDOB:12/1935 (89 yo M)Acc No.[id number]:11/19/2024 UNLOCKED PROGRESS NOTE Patient:?Ricci JUAREZ Sr :?Sarmad Keating MDDOB:1935???Age:89 Y ???Sex:MaleDate:11/19/2024Phone:[phone]:[address] [place], [place]Pcp:Orestes Villalobos D.O Subjective: * Chief Complaints: * 1 . 6 month f/u. * Medical History: Objective: * Vitals: Assessment: Plan: * Treatment: * * Electronic signature of Sarmad Keating MD, [id number] on 05/08/2025 at 12:50 PM ESTSign off status: PendingVisit Status:?R/S (Rescheduled) * Provider: Javier Keating MD Date: 0 11/19/2024 Generated for Printing/Faxing/eTransmitting on:?05/08/2025 12:50 PM EST
--- OUTSIDE RECORDS SUMMARY | 2025-01-30 06:10 | XMS_ITS ---
Author Organization The [facility] in [place] Address [address] [place] [address] Care Team Providers Care Business Excellence Manager Name Role Phone Orestes Villalobos D.O Primary Care Provider Alpa jamalilaSarmad Flores [phone] Encounters Encounter Location Date Provider Diagnosis Urology [facility] [address] 01/30/2025 Sarmad Keating Plan Of Treatment No Information Progress Notes * Ricci JUAREZ SrDOB:12/1935 (89 yo M)Acc No.[id number]:01/30/2025 UNLOCKED PROGRESS NOTE Patient:?Ricci JUAREZ Sr :?Sarmad Keating MDDOB:1935???Age:89 Y ???Sex:MaleDate:01/30/2025Phone:[phone]:[address] [place], [place]Pcp:Orestes Villalobos D.O Subjective: * Chief Complaints: * * Medical History: Objective: * Vitals: Assessment: Plan: * Treatment: * * Electronic signature of Sarmad Keating MD, [id number] on 05/08/2025 at 12:50 PM ESTSign off status: PendingVisit Status:?CANC (Cancelled) * Provider: Javier Keating MD Date: 0 01/30/2025 Generated for Printing/Faxing/eTransmitting on:?05/08/2025 12:50 PM EST
--- OUTSIDE RECORDS SUMMARY | 2025-05-06 13:00 | XMS_ITS | Encounter Summary ---
Author Organization [facility] Address [address] [place] [address] Care Team Providers Care Computer Network Support Specialist Name Role Phone Unavailable Primary Care Provider Unavailabl e Reason for Visit * ReasonCommentsSkin CheckFollow-up Encounter Details DateTypeDepartmentCare Team (Latest Contact Info)Srjccuunrij71/04/2025 1:00 PM ESTOffice Visit [facility] [address] [facility] [address] [place] [phone] Dorothy Stubbs MD [address] [facility] [address] [place] [address] Other atopic dermatitis (Primary Dx); Neoplasm of unspecified behavior of bone, soft tissue, and skin; Actinic keratosis; Lentigines; History of basal cell carcinoma Social History Tobacco UseTypesPacks/DayYears UsedDateSmoking Tobacco: NeverSmokeless Tobacco: NeverAlcohol UseStandard Drinks/WeekCommentsYes0 (1 standard drink = 0.6 oz pure alcohol)Sex and Gender InformationValueDate RecordedSex Assigned at BirthNot on fileLegal FquSozw4409/14/2022 6:50 PM EDTGender IdentityNot on fileSexual OrientationNot on filedocumented as of this encounter Progress Notes * Dorothy Stubbs MD - 05/06/2025 1:00 PM EST Images from the original note were not included. Skin Check Location: Patient requests a skin examination from the waist up Dermatologic history: history of Actinic Keratosis, history of Basal Cell Carcinoma Last visit: 1 year ago Follow up Diagnosis: Atopic Dermatitis Location: legs, back, arms Last visit: 1 year ago Symptoms: red, itchy at times Status: stable Treatments tried and failed: doxycycline 100 mg bid x 10 days, clobetasol cream Current treatment: betamethasone cream qd, Dove soap Xyzal given at last visit for dermatographism- patient states he never took this. Lesions: Location: neck Duration: months Quality: itchy Modifying factors: rubs on clothing Associated symptoms: enlarged, rough Treatments: none Established patient All pertinent medical history, medications, and allergies were reviewed. General Exam: alert, oriented to person, place, and time, normal affect, well appearing Unaccompanied A complete skin exam was offered, pt declined. Areas not examined despite medical recommendation: From the waist down Scalp, Examined , exam limited by hair Head, Face Examined Neck Examined Chest Examined Back Examined Abdomen Examined Right arm Examined Left arm Examined Hands Examined Digits,nails: Examined Lymphatics: Not examined Skin Exam 1. NEOPLASM OF UNSPECIFIED BEHAVIOR OF BONE, SOFT TISSUE, AND SKIN (3) Vertex Irregularly pigmented papule - Lesion biopsy Type of biopsy: tangential Informed consent: discussed and consent obtained Informed consent comment: The risks and benefits of the biopsy were discussed. Risks include but are not limited to bleeding, infection, scarring, pain, and nerve damage. An opportunity to ask questions prior to the procedure was permitted and all questions were answered. Patient was prepped and draped in usual sterile fashion: area cleansed with alcohol. Anesthesia: the lesion was anesthetized in a standard fashion Instrument used: DermaBlade Hemostasis achieved with: electrodesiccation Outcome: patient tolerated procedure well Outcome comment: The specimen was placed in a prelabeled formalin container to be sent for pathology Post-procedure details: sterile dressing applied and wound care instructions given Post-procedure details comment: Emphasized need to contact clinic for any signs of infection, uncontrollable bleeding, or complications. Dressing type: bandage Additional details: Photo taken Amount of lidocaine used: 1.0 cc Specimen A - Dermatopathology exam Differential Diagnosis: pigmented AK vs SCC vs melanoma Check Margins: No Size of lesion: 0.9 x 0.9 cm Diagnosis: (D49.2) Neoplasm of unspecified behavior of bone, soft tissue, and skin Plan: Lesion biopsy Mid frontal scalp Hyperkeratotic papule - Lesion biopsy Type of biopsy: tangential Informed consent: discussed and consent obtained Informed consent comment: The risks and benefits of the biopsy were discussed. Risks include but are not limited to bleeding, infection, scarring, pain, and nerve damage. An opportunity to ask questions prior to the procedure was permitted and all questions were answered. Patient was prepped and draped in usual sterile fashion: area cleansed with alcohol. Anesthesia: the lesion was anesthetized in a standard fashion Instrument used: DermaBlade Hemostasis achieved with: electrodesiccation Outcome: patient tolerated procedure well Outcome comment: The specimen was placed in a prelabeled formalin container to be sent for pathology Post-procedure details: sterile dressing applied and wound care instructions given Post-procedure details comment: Emphasized need to contact clinic for any signs of infection, uncontrollable bleeding, or complications. Dressing type: bandage Additional details: Photo taken Amount of lidocaine used: 1.0 cc Specimen B - Dermatopathology exam Differential Diagnosis: AK vs SCC Check Margins: No Size of lesion: 2.0 x 1.1 cm Right clavicular area Hyperkeratotic papule - Lesion biopsy Type of biopsy: tangential Informed consent: discussed and consent obtained Informed consent comment: The risks and benefits of the biopsy were discussed. Risks include but are not limited to bleeding, infection, scarring, pain, and nerve damage. An opportunity to ask questions prior to the procedure was permitted and all questions were answered. Patient was prepped and draped in usual sterile fashion: area cleansed with alcohol. Anesthesia: the lesion was anesthetized in a standard fashion Instrument used: DermaBlade Hemostasis achieved with: electrodesiccation Outcome: patient tolerated procedure well Outcome comment: The specimen was placed in a prelabeled formalin container to be sent for pathology Post-procedure details: sterile dressing applied and wound care instructions given Post-procedure details comment: Emphasized need to contact clinic for any signs of infection, uncontrollable bleeding, or complications. Dressing type: bandage Additional details: Photo taken Amount of lidocaine used: 1.0 cc Specimen C - Dermatopathology exam Differential Diagnosis: SCC vs ISK Check Margins: No Size of lesion: 0.8 x 0.4 cm 2. ACTINIC KERATOSIS (11) Chest - Medial (Center), Left Breast, Mid Forehead (2), Mid Frontal Scalp (2), Mid Parietal Scalp (3), Neck - Anterior, Right Forehead Erythematous scaly papules Patient was counseled regarding these sun-induced growths that can develop into squamous cell carcinoma if left untreated. Discussed treatment with cryotherapy. It was emphasized that any treated lesions that fail to resolve should be re- evaluated. Cryotherapy performed today; see procedure note Diagnosis: Actinic keratosis Indication: Precancerous Location: see skin exam Consent: Verbal consent was obtained and risks were discussed, including, but not limited to risks of scarring, darker or suit maker pigmentary changes, recurrence, incomplete removal and infection. Method: Liquid nitrogen was used to treat the lesion(s) with two 5-10 second freeze-thaw cycles. Eyes were shielded using cotton pad during procedure Number of lesions treated: 11 Post-procedure instructions: Instructions were given orally and in writing. The office will be contacted if the lesion fails to resolve despite treatment, or if a side effect develops such as abnormal crusting, scabbing, redness or tenderness - Cryotherapy, skin lesion - Chest - Medial (Center), Left Breast, Mid Forehead (2), Mid Frontal Scalp (2), Mid Parietal Scalp (3), Neck - Anterior, Right Forehead 3. LENTIGINES Mid Parietal Scalp Scattered silva macules in sun-exposed areas. The patient was informed that lentigines are benign pigmented lesions that occur on sun-exposed andsun-damaged skin. No treatment is necessary. Recommended regular use of broad spectrum sunscreen SPF 30 or higher 4. OTHER ATOPIC DERMATITIS Torso - Posterior (Back) Clear today with treatment Discussed that atopic dermatitis is a chronic condition that can be controlled but not cured. Continue betamethasone cream bid prn when flared, hold if smooth/asymptomatic. Encouraged daily moisturizing and gentle cleansers to prevent flares. Notify office if flaring despite treatment. Patient declines refill at this time. Existing Treatments - betamethasone dipropionate 0.05 % cream - Apply to affected areas on arms, back, legs, up to twice a day when flared, do not use one the face, groin, or underarms, 30 day supply 5. HISTORY OF BASAL CELL CARCINOMA Left [place] No evidence of recurrence at BCC scar. The patient was counseled that scars from excisional sites of nonmelanoma skin cancers should be monitored closely for recurrence. The patient was instructed to contact the office for any new, changing, or symptomatic moles. The patient was also instructed to contact the office for any new lesions that develop within or around the previous surgery scar. Next Visit: 1 year documented in this encounter Plan of Treatment DateTypeDepartmentCare Team (Latest Contact Info)Ffajfugspaf23/04/2026 1:00 PM ESTOffice Visit [facility] [address] [place] [address] Dorothy Stubbs MD [address] [place] [address] NameTypePriorityAssociated DiagnosesOrder ScheduleDermatopathology examPathology and CytologyTimed Neoplasm of unspecified behavior of bone, soft tissue, and skin Release Upon Ordering for 1 Occurrences starting 05/06/2025documented as of this encounter Procedures Procedure NamePriorityDate/TimeAssociated DiagnosisCommentsSKIN / NAIL BIOPSY Foaxizj1505/06/2025 1:06 PM EST Neoplasm of unspecified behavior of bone, soft tissue, and skin SKIN / NAIL WTBDWVPyhixdl41/04/2025 1:04 PM EST Neoplasm of unspecified behavior of bone, soft tissue, and skin CRYOTHERAPY SKIN ZDSTKNZqdmhov45/04/2025 1:04 PM EST Actinic keratosis SKIN / NAIL CGQZKQRpeajrx11/04/2025 1:03 PM EST Neoplasm of unspecified behavior of bone, soft tissue, and skin documented in this encounter Results * Lesion biopsy (05/06/2025 1:06 PM EST) Narrative Collette Price MA - 05/06/2025 1:06 PM EST Type of biopsy: tangential Informed consent: discussed and consent obtained ?? Informed consent comment: ??The risks and benefits of the biopsy were discussed. Risks include but are not limited to bleeding, infection, scarring, pain, and nerve damage. An opportunity to ask questions prior to the procedure was permitted and all questions were answered. Patient was prepped and draped in usual sterile fashion: area cleansed with alcohol. Anesthesia: the lesion was anesthetized in a standard fashion ?? Instrument used: DermaBlade ?? Hemostasis achieved with: electrodesiccation ?? Outcome: patient tolerated procedure well ?? Outcome comment: ??The specimen was placed in a prelabeled formalin container to be sent for pathology Post-procedure details: sterile dressing applied and wound care instructions given ?? Post-procedure details comment: ??Emphasized need to contact clinic for any signs of infection, uncontrollable bleeding, or complications. Dressing type: bandage ?? Additional details: ??Photo taken Amount of lidocaine used: 1.0 cc Authorizing ProviderResult TypeResult StatusEmily A Petitti MDDERM PROCEDURE ORDERABLESFinal Result * Lesion biopsy (05/06/2025 1:04 PM EST) Narrative Collette Price MA - 05/06/2025 1:04 PM EST Type of biopsy: tangential Informed consent: discussed and consent obtained ?? Informed consent comment: ??The risks and benefits of the biopsy were discussed. Risks include but are not limited to bleeding, infection, scarring, pain, and nerve damage. An opportunity to ask questions prior to the procedure was permitted and all questions were answered. Patient was prepped and draped in usual sterile fashion: area cleansed with alcohol. Anesthesia: the lesion was anesthetized in a standard fashion ?? Instrument used: DermaBlade ?? Hemostasis achieved with: electrodesiccation ?? Outcome: patient tolerated procedure well ?? Outcome comment: ??The specimen was placed in a prelabeled formalin container to be sent for pathology Post-procedure details: sterile dressing applied and wound care instructions given ?? Post-procedure details comment: ??Emphasized need to contact clinic for any signs of infection, uncontrollable bleeding, or complications. Dressing type: bandage ?? Additional details: ??Photo taken Amount of lidocaine used: 1.0 cc Authorizing ProviderResult TypeResult StatusEmily A Petitti MDDERM PROCEDURE ORDERABLESFinal Result * Cryotherapy, skin lesion (05/06/2025 1:04 PM EST) Narrative Authorizing ProviderResult TypeResult StatusEmily A Petitti MDDERM PROCEDURE ORDERABLESFinal Result * Lesion biopsy (05/06/2025 1:03 PM EST) Narrative Collette Price MA - 05/06/2025 1:03 PM EST Type of biopsy: tangential Informed consent: discussed and consent obtained ?? Informed consent comment: ??The risks and benefits of the biopsy were discussed. Risks include but are not limited to bleeding, infection, scarring, pain, and nerve damage. An opportunity to ask questions prior to the procedure was permitted and all questions were answered. Patient was prepped and draped in usual sterile fashion: area cleansed with alcohol. Anesthesia: the lesion was anesthetized in a standard fashion ?? Instrument used: DermaBlade ?? Hemostasis achieved with: electrodesiccation ?? Outcome: patient tolerated procedure well ?? Outcome comment: ??The specimen was placed in a prelabeled formalin container to be sent for pathology Post-procedure details: sterile dressing applied and wound care instructions given ?? Post-procedure details comment: ??Emphasized need to contact clinic for any signs of infection, uncontrollable bleeding, or complications. Dressing type: bandage ?? Additional details: ??Photo taken Amount of lidocaine used: 1.0 cc Authorizing ProviderResult TypeResult StatusEmily A Enoc MDDERM PROCEDURE ORDERABLESFinal Result documented in this encounter Visit Diagnoses Diagnosis Other atopic dermatitis- Primary Neoplasm of unspecified behavior of bone, soft tissue, and skin Actinic keratosis Lentigines History of basal cell carcinoma Personal history of other malignant neoplasm of skin documented in this encounter
[2025-05-07 11:58] VITALS: BP 170/95; PULSE 68; TEMP 36.2; O2SAT 98; BMI 26.2
--- OUTSIDE RECORDS SUMMARY | 2025-05-08 12:50 | XMS_ITS | Patient Health Record ---
Author Organization [facility] Address [address] [place] [address] Care Team Providers Care Garbage Truck Dispatcher Name Role Phone Magdiel Fernandon Unavailable [phone] Allergies No Known Allergies Reason For Referral [...] Vital Signs Heart Rate 70 BPM 07/22/2024 Jkpikwyeksd22.8 degrees Vnpilhymah85/20/2025Respiratory Rate18 BPM07/22/2024 Blood pressure mm/Hg07/22/20247425Tuqvbzbl44 %07/22/20242973Zdixsq94 in 07/22/2024lood pressure zbmyytke711 mm/Hg07/22/20246148Zvtwyf237 lbs07/22/2024MI 26.3 kg/m207/22/2024 Procedures Procedure Date Ordered Date Performed Result Body Sit e CERUMEN DISIMPACTION- ONE EA R (EAR IRRIGATION) 07/22/2024 07/24/2024 N/A Encounters Encounter Location Date [facility] [address] [place] [address] 07/22/2024 Jason Fernando Bilateral impacted cerumen H61.23 [...] End Date MEDICARE [place] [address] [address] [place] [address] [id number] Mic Juarez - patient is the insuredAT[facility]ALTH [address] [address] [place] [phone], RichardSelf - patient is the insured Medical (General) History Medical History History ICD Code HTN CHOLESTEROLDIABETEShearing loss - hearing aids
--- OUTSIDE RECORDS SUMMARY | 2025-05-08 12:51 | XMS_ITS | Clinical Summary ---
Author Organization [facility] Address [address] [place] [address] Care Team Providers Care Art Display Maker Name Role Phone Unavailable Primary Care Provider [...] Problems No known active problems Encounters DateTypeDepartmentCare EebkBlnhmapbylg64/04/2025 1:00 PM ESTOffice Visit [facility] [address] [facility] [address] [place] [address] Dorothy Stubbs MD Other atopic dermatitis (Primary Dx); Neoplasm of unspecified behavior of bone, soft tissue, and skin; Actinic keratosis; Lentigines; History of basal cell lpinoqywh58/04/2025amboo flowsheet [facility] [address] [facility] [address] [place] [address] Dorothy Stubbs MD 05/06/2025Travelfrom Last 3 Months Family History Medical HistoryRelationNameCommentsNo Known ProblemsFatherCancerMotherBreast cancerNeg HxColon cancerNeg HxMelanomaNeg HxOvarian cancerNeg HxRelationName StatusCommentsFatherDeceasedMotherDeceased Social History Tobacco UseTypesPacks/DayYears UsedDateSmoking Tobacco: NeverSmokeless Tobacco: Never Tobacco Cessation:Counseling Given: Not Answered Alcohol UseStandard Drinks/WeekCommentsYes0 (1 standard drink = 0.6 oz pure alcohol)Sex and Gender InformationValueDate RecordedSex Assigned at BirthNot on fileLegal IjzRlqm9809/14/2022 6:50 PM EDTGender IdentityNot on fileSexual OrientationNot on file Last Filed Vital Signs Vital SignReadingTime TakenCommentsBlood Mfaylbpk219/6807 12:00 PM EDT Pulse--Temperature--Respiratory Rate--Oxygen Saturation--Inhaled Oxygen Concentration--Efjtlf05.2 kg (190 lb)07/06/2017 12:00 PM CZHAetikr486.7 cm (5' 8 )04/04/2022 12:00 PM EDTBody Mass Index28.8907/06/2017 12:00 PM EST Plan of Treatment DateTypeDepartmentCare Team (Latest Contact Info)Qxqnbuaeare92/04/2026 1:00 PM ESTOffice Visit [facility] [address] [facility] [address] [place] [address] Dorothy Stubbs MD [address] [place] [address] Health MaintenanceDue DateLast DoneCommentsCOVID-19 Vaccine (2024- season) 51, 06/08/2021, 08/15/2020, Additional history existsInfluenza Vaccine (#1)5107/06/2023, 05/05/2023, 05/02/2022, Additional history existsPneumococcal Vaccine: 65+ OrcygRdeycnalk96/09/2022, 05/11/2020 Procedures Procedure NamePriorityDate/TimeAssociated DiagnosisCommentsSKIN / NAIL BIOPSY Jgplhvh0805/06/2025 1:06 PM EST Neoplasm of unspecified behavior of bone, soft tissue, and skin SKIN / NAIL IEOUCGZubgvcw00/04/2025 1:04 PM EST Neoplasm of unspecified behavior of bone, soft tissue, and skin CRYOTHERAPY SKIN TACGTSLehdkve57/04/2025 1:04 PM EST Actinic keratosis SKIN / NAIL LFFLKELrtrdye08/04/2025 1:03 PM EST Neoplasm of unspecified behavior [...] Juarezcofeliciano TypeRelation to PatientDate of BirthPhone Billing AddressPersonal/FbbjzzQovx62[birth year][address] [place] [phone] MemberSubscriberPlan / Payer (Effective 2023-Present)Name:Ricci Juarez Relation to Subscriber:SelfName:Ricci Juarez Payer ID:[facility] ([facility]) Type:Not on file Address: [id number] [place] [phone]
--- OUTSIDE RECORDS SUMMARY | 2025-05-08 12:51 | XMS_ITS | Encounter Summary ---
Author Organization [facility] Address [address] [place] [address] Care Team Providers Care Account Clerk Name Role Phone Unavailable Primary Care Provider Unavailabl e Encounter Details DateTypeDepartmentCare Team (Latest Contact Info)Tsxjssgeyay08/04/2025Travel Social History Tobacco UseTypesPacks/DayYears UsedDateSmoking Tobacco: NeverSmokeless Tobacco: NeverAlcohol UseStandard Drinks/WeekCommentsYes0 (1 standard drink = 0.6 oz pure alcohol)Sex and Gender InformationValueDate RecordedSex Assigned at BirthNot on fileLegal AunLlkm1909/14/2022 6:50 PM EDTGender IdentityNot on fileSexual OrientationNot on filedocumented as of this encounter Plan of Treatment DateTypeDepartmentCare Team (Latest Contact Info)Sxktgbxnaen97/04/2026 1:00 PM ESTOffice Visit [facility] [address] [facility] [address] [place] [address] Dorothy Stubbs MD [address] [facility] [address] [place] [address] documented as of this encounter Visit Diagnoses Not on filedocumented in this encounter
--- OUTSIDE RECORDS SUMMARY | 2025-05-08 12:51 | XMS_ITS | Encounter Summary ---
Author Organization [facility] Address [address] [place] [address] Care Team Providers Care Ceramic Engineering Professor Name Role Phone Unavailable Primary Care Provider Unavailabl e Encounter Details DateTypeDepartmentCare Team (Latest Contact Info)Pjbnnllgmuy37/04/2025amboo flowsheet [facility] [place] [facility] [address] [place] [address] Dorothy Stubbs MD [address] [place] [address] Social History Tobacco UseTypesPacks/DayYears UsedDateSmoking Tobacco: NeverSmokeless Tobacco: NeverAlcohol UseStandard Drinks/WeekCommentsYes0 (1 standard drink = 0.6 oz pure alcohol)Sex and Gender InformationValueDate RecordedSex Assigned at BirthNot on fileLegal VwkElne9709/14/2022 6:50 PM EDTGender IdentityNot on fileSexual OrientationNot on filedocumented as of this encounter Plan of Treatment DateTypeDepartmentCare Team (Latest Contact Info)Zslvgbwsaji32/04/2026 1:00 PM ESTOffice Visit [facility] [place] [facility] [address] [place] [address] Dorothy Stubbs MD [address] [place] [address] documented as of this encounter Visit Diagnoses Not on filedocumented in this encounter
--- OUTSIDE RECORDS SUMMARY | 2025-05-08 12:52 | XMS_ITS | Clinical Summary ---
Author Organization [facility] Address [address] [place] [address] Phone Care Team Providers Care Recessing Machine Operator Name Role Phone Unavailable Primary Care Provider Unavailabl e Social History Tobacco UseTypesPacks/DayYears UsedDateSmoking Tobacco: Never AssessedSex and Gender InformationValueDate RecordedSex Assigned at BirthNot on fileLegal Sex Male05/27/2022 5:52 PM ESTGender IdentityNot on fileSexual OrientationNot on file Plan of Treatment Health MaintenanceDue DateLast DoneCommentsLipid Panel1935Yearly Adult Wqfrqfnw24/06/1936DTaP/Tdap/Td Vaccines (1 - Tdap)11/05/1957Pneumococcal Vaccine (1 of [...]
--- OUTSIDE RECORDS SUMMARY | 2025-05-08 12:52 | XMS_ITS | Patient Health Record ---
Author Organization [facility] [place] Address [address] [place] [address] Care Team Providers Care Clinical Nursing Intern Name Role Phone Orestes Villalobos D.O Primary Care Provider Alpa Sarmad Thomas Unavailable [phone] Allergies No Known Allergies Reason For Referral No Information Medications Medication SIG (Take, Route, Frequency, Duration) Notes Start Date End Date Status Meloxicam ActivemetFORMIN HCl 1000 MG1 tablet with a meal Orally Once a dayActive KohbtpmeolYbbjggWeffmtnlxazxvFkz-VvbonrFpezztswpx-fnufzAYNOMCbvgrvkurOorvir Levocetirizine DihydrochlorideNot-TakingLisinoprilActiveCiprofloxacin HCl 500 MG 1 tablet [...] Problem Calculus of kidney a nd ureter (068920377) 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 [address] [address] 06/20/2024 [facility] [place] [address] [facility]ign prostatic hyperplasia with lower urinary tract symptoms, symptom details unspecified N40.1 ;Calculus of kidney and ureter N20.2 and Elevated prostate specific antigen [PSA] R97.20[facility]rology [facility] [address] [place] [address] Streetni prostatic hyperplasia with lower urinary tract symptoms, symptom details unspecified N40.1 ;Calculus of kidney and ureter N20.2 and Elevated prostate specific antigen [PSA] R97.[address] [address] Assessments Encounter Date Diagnosis (ICD Code) Assessment Notes Treatment Notes Treatment Clinical Notes Section Notes 05/21/2024 Benign prostatic hyp erplasia with lower urinary tract symptoms, symptom details unspecified (ICD-10 - N40.1) 11/26/2024enign prostatic hyperplasia with lower urinary tract symptoms, symptom details unspecified (ICD-10- N40.1)11/26/2024alculus of kidney and ureter (ICD-10 - N20.2)05/21/2024alculus of kidney and ureter (ICD-10 - N20.2) 05/21/2024Elevated prostate specific antigen [PSA] (ICD-10 - R97.20)11/26/2024 Elevated prostate specific antigen [PSA] (ICD-10 - R97.20)05/21/2024Other MRI fusion biopsy with [place] in [place] Discussed risks PIRADS-4 areas. 11/26/2024Other Uronav. Cipro called in. Plan Of Treatment Pending Test Test Name Order Date MRI PROSTATE W/ + W/O CONTRAST 4 Insurance Providers Payer Name Payer Address Payer Phone Subscriber Number Group Number Insured Name Patient Relationship to Insured Coverage Start Date Coverage End Date [place] [address] [place] [address] [id number] Mic Juarez - patient is the [id number] 2000[facility] [address] [address] [place], [place] [id number], RichardSelf - patient is the insured Medical (General) History Medical History History ICD Code hypertension hyperlipidemiadiabeteskidney stonesBenign prostatic hyperplasia with lower urinary tract symptoms, symptom details abazkibdmquI68.1Calculus of kidney and apjptmM61.2Elevated prostate specific antigen [PSA]R97.20Surgical History Surgery Date(Month/Year) prostate surgery cataract removal
[2025-05-08 13:12] VITALS: BP 191/103; PULSE 77; TEMP 36.2; O2SAT 97; BMI 26.0
--- NOTE | 2025-05-08 13:37 | P.ON_ITS ---
Surgery Operative Note Operative Note Procedure Date: 05/08/25 Pre-op Diagnosis: Chronic right knee wound Post-op Diagnosis: same as pre-op Procedures performed: 1. Right knee irrigation and debridement right knee anterior wound 5 cm x 4 cm 2. Right knee primary wound closure Anesthesia: MAC Primary Surgeon: Mathew Magana Complications: none Estimated blood loss (mL): 20 Indications for Procedures: Ricci is an 89-year-old male who underwent I&D of infected prepatellar bursitis. He had dehiscence of his wound in the postoperative stage. He underwent primary wound closure with the knee locked in extension for 2 weeks. Once he began ambulating, he had a repeat dehiscence of his wound. We treated the wound conservatively for several weeks however wound did not make progression and wound care sent him back for surgical evaluation again. We discussed continued conservative management versus surgical intervention for repeat primary wound closure. Risks, benefits, complications, procedure detail, convalescence, reasonable expectations were discussed in length. All questions were answered. Patient wishes to pursue surgical intervention, and consent was obtained. Patient was scheduled for surgery. Detailed description of Procedure: Patient was identified in the preoperative area where the correct procedure and laterality was confirmed. Patient was then brought back to the operative suite by OR staff. Patient was then positioned [supine] on the operating table. Anesthetic medication was administered to the patient. All bony prominences were well-padded and peripheral nerves free of compression. The operative ext remity was prepped and draped in normal sterile fashion. A timeout was performed. We began by extending the previous longitudinal incision proximal and distal to the open wound. Previous wound edges were ellipsed out. Soft tissue flaps were made medial lateral. Nonviable bursal tissue was removed. Excisional debridement of bursal tissue, skin, subcutaneous tissue, fascia was removed. Healthy bleeding tissue was seen throughout. 3 L of normal saline was used for irrigation. Subcutaneous skin was closed using 2-0 Monocryl. Skin was closed using 2-0 and 3-0 nylon. A Prevena incisional wound VAC was placed on the incision. Patient was placed in a hinged knee brace locked in extension. Patient was then awoken from anesthesia and transported to PACU in stable condition. All counts are correct. Case was clean dirty. No complications were encountered throughout the procedure. Disposition: Patient will be discharged from PACU to home. Appropriate postoperative medications have been prescribed. Patient is allowed weightbearing as tolerated with the knee locked in extension. Patient is allowed to bend the knee from 0 to 30 degrees. Patient will follow-up in 2 weeks outpatient for suture removal and reevaluation.
[2025-05-08] MEDS: CEFAZOLIN SODIUM/DEXTROSE,ISO 2 GM/50 ML PIGGYBACK IV (13:43)
[2025-05-08] MEDS: BUPIVACAINE HCL 0.5% PF 50 MG/10 ML VIAL INJ (14:02)
[2025-05-08 14:44] VITALS: BP 150/87; PULSE 79; TEMP 36.5; O2SAT 95
[2025-05-08 14:59] VITALS: BP 150/87; PULSE 71; O2SAT 94
[2025-05-08 15:14] VITALS: BP 157/99; PULSE 86; O2SAT 95
== END 2025-05-08 15:34 | disposition home or self-care (01) ==
LOC: SURGOUT 12:47
PROVIDERS: PCP Student in an Organized Health Care Education/Training Program; Visit Provider Physician Assistant
PROC: (CPT 13160; principal; 2025-05-08 13:30)
DX: T81.31XA Disruption of external operation (surgical) wound, not elsewhere classified, initial encounter (principal); M25.561 Pain in right knee; M25.061 Hemarthrosis, right knee; Z95.1 Presence of aortocoronary bypass graft; E78.5 Hyperlipidemia, unspecified; I10 Essential (primary) hypertension; I48.91 Unspecified atrial fibrillation; I25.10 Atherosclerotic heart disease of native coronary artery without angina pectoris; E11.9 Type 2 diabetes mellitus without complications; N40.0 Benign prostatic hyperplasia without lower urinary tract symptoms; K21.9 Gastro-esophageal reflux disease without esophagitis; L40.9 Psoriasis, unspecified; Z79.84 Long term (current) use of oral hypoglycemic drugs
CPT/HCPCS: 13160; A9272; J0665; J0690; J2405; J2704; J3010